=== PATIENT | female | born 2000 | race Caucasian/White ===

== ENCOUNTER 2019-04-24 18:05 | Emergency (ER) | payer OTHER, SELFPAY ==
[~2019-04-24] VITALS: Ht 162.6 cm; Wt 90.7 kg
[2019-04-24 18:06] VITALS: BP 147/79
[2019-04-24] MEDS ORDERED: bcp (18:13)
[2019-04-24] MEDS ORDERED: BACT800T5 PO (19:55)
== END 2019-04-24 20:06 | disposition home or self-care (01) ==
LOC: M ED 18:05
DX: L05.01 Pilonidal cyst with abscess (principal); Z88.0 Allergy status to penicillin; Z88.8 Allergy status to other drugs, medicaments and biological substances; Z79.899 Other long term (current) drug therapy

== ENCOUNTER 2019-08-28 16:11 | Emergency (ER) | payer BC, OTHER ==
[~2019-08-28] VITALS: Ht 162.6 cm; Wt 98.2 kg
[~2019-08-28 16:11] MED LIST: BACT800T5 PO; bcp
[2019-08-28] MEDS ORDERED: NAPR250T4 PO (16:18)
[2019-08-28] MEDS ORDERED: LEVO0.1T (16:18)
[2019-08-28] MEDS ORDERED: CLINDAMYCIN 150 MG CAP PO ONE (18:00)
[2019-08-28] MEDS ORDERED: KETOROLAC 60 MG/2 ML VIAL (J1885) IM ONE (18:00)
[2019-08-28] MEDS ORDERED: predniSONE 50 MG TAB PO ONE (18:00)
[2019-08-28] MEDS ORDERED: CLEO300C2 PO (19:19)
[2019-08-28] MEDS ORDERED: PRED10TA2 PO (19:19)
[2019-08-28 19:26] VITALS: BP 122/65
== END 2019-08-28 19:46 | disposition home or self-care (01) ==
LOC: M ED 16:11
DX: L05.91 Pilonidal cyst without abscess (principal); Z79.899 Other long term (current) drug therapy; Z88.0 Allergy status to penicillin
CPT/HCPCS: 96372; 99283; J1885

== ENCOUNTER 2019-09-17 11:16 | Day surgery (SDC) | payer BC, OTHER ==
[~2019-09-17] VITALS: Ht 162.6 cm; Wt 90.7 kg
[~2019-09-17 11:16] MED LIST changes: +CLEO300C2 PO; +LEVO0.1T; +LR 1,000 ML IV ONE; +NAPR250T4 PO; +PRED10TA2 PO
[2019-09-17] MEDS ORDERED: fentaNYL 100 MCG/2 ML INJECTION (J3010) As Ordered ONE (12:26)
[2019-09-17] MEDS ORDERED: propofoL 200 MG/20 ML VIAL As Ordered ONE (12:26)
[2019-09-17] MEDS ORDERED: MIDAZOLAM INJ 2 MG/2 ML VIAL (J2250) As Ordered ONE (12:26)
[2019-09-17] MEDS ORDERED: ONDANSETRON 4MG/2ML VIAL (J2405) As Ordered ONE (12:26)
[2019-09-17] MEDS ORDERED: dexameTHASONE 4 MG/ML 1ML VIAL (J1100) As Ordered ONE (12:26)
[2019-09-17] MEDS ORDERED: LIDOCAINE 2% INJ 100 MG/5 ML SDV (FOR ANES.) As Ordered ONE (12:26)
[2019-09-17] MEDS ORDERED: CHLOROPROCAINE 2 % INJ PRES.FREE 20 ML VIAL (J2400) As Ordered ONE (12:40)
[2019-09-17] MEDS ORDERED: ACETAMINOPHEN 1000MG 100ML IV BTL (OFIRMEV) (J0131 PER 10MG) As Ordered ONE (13:31)
[2019-09-17] MEDS ORDERED: KETOROLAC 60 MG/2 ML VIAL (J1885) As Ordered ONE (13:36)
--- NOTE | 2019-09-17 14:14 | RO ---
DATE OF PROCEDURE: 09/17/2019 PREOPERATIVE DIAGNOSIS: Pilonidal cyst. POSTOPERATIVE DIAGNOSIS: Pilonidal cyst. PROCEDURE: Pilonidal cystectomy. SURGEON: Dr. Pepito Cannon DAY SPA MANAGER: None. ANESTHESIA: Spinal with MAC. ESTIMATED BLOOD LOSS: 5. COMPLICATIONS: None. INDICATIONS FOR PROCEDURE: The patient is a 19-year-old female who presents with recurrent pilonidal cyst. Recommendation was to proceed with pilonidal cystectomy. Risks and benefits of the procedure not limited to, but including bleeding, infection, damage to surrounding structures, need for further surgery discussed in detail with the patient and informed consent was obtained and the procedure was planned. PROCEDURE: The patient was brought back to operating room seven. After sufficient sedation the presacral area was sterilely prepped and draped with Betadine. Next, a time out was done to confirm proper patient and proper procedure. Following that, an elliptical incision was made around the sinus tracts and the cyst with a 15 blade scalpel. Cautery was then used to dissect the edges of the wound all the way down to the presacral fascia. The specimen was then removed in one piece. The edges of the wound were cauterized to control hemostasis. The wound was irrigated to confirm hemostasis. The wound was then dried, packed with 4 x 4's, and covered with tape, thus ending the procedure.
[2019-09-17] MEDS ORDERED: HYDROMORPHONE HCL 0.5 MG/ 0.5 ML SYRINGE (J1170 PER 1) IV PRN (14:15)
[2019-09-17] MEDS ORDERED: LR 1,000 ML IV SCH (14:15)
[2019-09-17] MEDS ORDERED: oxyCODONE 5MG TAB PO PRN (14:15)
[2019-09-17] MEDS ORDERED: ONDANSETRON 4MG/2ML VIAL (J2405) IV PRN (14:15)
[2019-09-17] MEDS ORDERED: fentaNYL 100 MCG/2 ML INJECTION (J3010) IV PRN (14:15)
[2019-09-17] MEDS ORDERED: NORCO, ANEXSIA 5/325MG TABLET (HYDROcodone/ACETAMINOPHEN) PO PRN (14:15)
[2019-09-17 15:20] VITALS: BP 127/78
[2019-09-18] MEDS ORDERED: HYDR-3713 PO (18:33)
== END 2019-09-17 16:21 | disposition home or self-care (01) ==
LOC: M SDC 11:16
PROVIDERS: ATTEND Surgery
DX: L05.91 Pilonidal cyst without abscess (principal); L05.92 Pilonidal sinus without abscess; Z88.0 Allergy status to penicillin
CPT/HCPCS: 11770; 81025; 88304; J0131; J1100; J1885; J2250; J2400; J2405; J3010

== ENCOUNTER 2019-09-18 17:56 | Emergency (ER) | payer BC, OTHER ==
[~2019-09-18] VITALS: Ht 177.8 cm; Wt 97.7 kg
[~2019-09-18 17:56] MED LIST changes: -LR 1,000 ML IV ONE
[2019-09-18] MEDS ORDERED: HYDR-3713 PO (18:33)
[2019-09-18 21:32] VITALS: BP 109/56
== END 2019-09-18 21:32 | disposition home or self-care (01) ==
LOC: M ED 17:56
DX: L76.22 Postprocedural hemorrhage of skin and subcutaneous tissue following other procedure (principal); Z79.3 Long term (current) use of hormonal contraceptives; Z88.0 Allergy status to penicillin; Z88.8 Allergy status to other drugs, medicaments and biological substances

== ENCOUNTER 2021-08-04 14:04 | Emergency (ER) | payer BC, OTHER ==
[~2021-08-04] VITALS: Ht 162.6 cm; Wt 109.2 kg
[~2021-08-04 14:04] MED LIST changes: +HYDR-3713 PO; +NAPR-849 PO; -NAPR250T4 PO
[2021-08-04 16:44] LABS: BASO # 0.1 10^3/uL (0.0-0.2); BASO % 0.5 % (0.0-1.0); EOS # 0.1 10^3/uL (0.0-0.5); EOS % 0.5 % (0.0-3.0); HEMATOCRIT 41.3 % (36.0-47.0); HEMOGLOBIN 13.7 g/dl (12.0-15.5); LYMPH # 1.7 10^3/uL (1.5-5.0); LYMPH % 11.5 % (24.0-44.0); MEAN CORPUSCULAR HEMOGLOBIN 28.8 pg (27.0-33.0); MEAN CORPUSCULAR HGB CONC 33.2 g/dl (32.0-36.5); MEAN CORPUSCULAR VOLUME 86.9 fl (80.0-96.0); MONO # 0.5 10^3/uL (0.0-0.8); MONO % 3.5 % (2.0-8.0); NEUTROPHILS # 12.2 10^3/uL (1.5-8.5); NEUTROPHILS % 83.3 % (36.0-66.0); PLATELET COUNT, AUTOMATED 304 10^3/uL (150-450); RED BLOOD COUNT 4.75 10^6/uL (4.00-5.40); WHITE BLOOD COUNT 14.7 10^3/uL (4.0-10.0)
[2021-08-04 17:01] LABS: ALBUMIN 4.1 GM/DL (3.2-5.2); ALT/SGPT 24 U/L (12-78); BILIRUBIN,DIRECT 0.1 MG/DL (0.0-0.2); BILIRUBIN,TOTAL 0.4 MG/DL (0.2-1.0); BLOOD UREA NITROGEN 7 MG/DL (7-18); CALCIUM LEVEL 9.2 MG/DL (8.5-10.1); CARBON DIOXIDE LEVEL 23 MEQ/L (21-32); CHLORIDE LEVEL 105 MEQ/L (98-107); CREATININE FOR GFR 0.62 MG/DL (0.55-1.30); GLOMERULAR FILTRATION RATE > 60.0 (>60); GLUCOSE, FASTING 75 MG/DL (70-100); LIPASE 57 U/L (73-393); SODIUM LEVEL 137 MEQ/L (136-145); TOTAL PROTEIN 7.3 GM/DL (6.4-8.2)
[2021-08-04 17:14] LABS: HCG, SERUM QUALITATIVE NEGATIVE (NEGATIVE)
[2021-08-04] MEDS ORDERED: ISOVUE-370 76% 100ML VIAL As Ordered ONE (17:25)
--- NOTE | 2021-08-04 18:23 | REPVR ---
PROCEDURE INFORMATION: Exam: CT Abdomen And Pelvis With Contrast Exam date and time: 08/04/2021 4:57 PM Age: 20 years old Clinical indication: Abdominal pain; Additional info: Rlq pain R/O appy TECHNIQUE: Imaging protocol: Computed tomography of the abdomen and pelvis with contrast. Radiation optimization: All CT scans at this facility use at least one of these dose optimization techniques: automated exposure control; mA and/or kV adjustment per patient size (includes targeted exams where dose is matched to clinical indication); or iterative reconstruction. Contrast material: ISOVUE 370; Contrast volume: 100 ml; Contrast route: INTRAVENOUS (IV); COMPARISON: No relevant prior studies available. FINDINGS: Lungs: No suspicious mass or airspace process in the visualized lung bases. Liver: Liver appears normal with no focal abnormality. Gallbladder and bile ducts: Gallbladder is present and shows no evidence of gallstone. Pancreas: Pancreas appears normal. No focal mass or peripancreatic inflammation. Spleen: Spleen appears homogeneous without focal mass. Adrenal glands: Adrenal glands are normal in appearance. Kidneys and ureters: Kidneys appear normal, with no stone, solid mass or hydronephrosis. Stomach and bowel: No evidence of small bowel obstruction. Terminal ileum has normal appearance. Appendix: Normal caliber appendix is identified, with no adjacent inflammation. Intraperitoneal space: No pneumoperitoneum. Vasculature: No aortic aneurysm. Main portal and splenic veins enhance normally. Lymph nodes: Small, nonspecific mesenteric and RLQ lymph nodes are present. Urinary bladder: Urinary bladder appears normal. Reproductive: Right ovary suggest a 2.5 cm simple cyst. Uterus and left ovary are normal. Bones/joints: No effacement of normal fat planes in the ischiorectal fossa. Bony structures show no acute fracture or destructive process. Soft tissues: Unremarkable. IMPRESSION: 1. Normal appearing appendix, air-filled with no inflammation. 2. Prominent right lower quadrant mesenteric lymph nodes, which can be seen with mesenteric adenitis but as a solitary finding are equivocal. 3. Prominent cecal and right-sided colonic stool suggesting constipation which could be the source of the patient's right lower quadrant pain. 4. Right ovarian cyst on the order of 2.5 cm with no evidence of edema or other complication Electronically signed by: Esteban Yin On 08/04/2021 18:22:42 PM
[2021-08-04 19:03] VITALS: BP 123/73
== END 2021-08-04 19:19 | disposition home or self-care (01) ==
LOC: M ED 14:04
DX: K59.00 Constipation, unspecified (principal); I88.0 Nonspecific mesenteric lymphadenitis; Z79.3 Long term (current) use of hormonal contraceptives; Z88.0 Allergy status to penicillin; Z88.8 Allergy status to other drugs, medicaments and biological substances
CPT/HCPCS: 36415; 74177; 80048; 80076; 81001; 83690; 84703; 85025; 99284; Q9967